=== PATIENT | male | born 1990 | race Caucasian/White ===

== ENCOUNTER 2017-03-10 17:06 | Emergency (ER) | payer OTHER ==
[~2017-03-10] VITALS: Ht 188 cm; Wt 68.0 kg
[2017-03-10 17:43] LABS: HEMATOCRIT 48.3 % (39.2-51.8); HEMOGLOBIN 16.1 g/dL (13.7-18.0); WHITE BLOOD COUNT 7.7 x10^3/uL (3.4-10)
[2017-03-10 17:49] LABS: DAU SCREEN DISCLAIMER
[2017-03-10 17:53] LABS: BLOOD UREA NITROGEN 14 mg/dL (7-18)
[2017-03-10] MEDS ORDERED: LORazepam 2 MG/ML, 1ML IVPush ONE (18:00)
[2017-03-10] MEDS ORDERED: PLEASE ENTER ALLERGIES MC SCH ×2 (18:30)
[2017-03-10 19:35] VITALS: BP 135/86
== END 2017-03-10 19:43 | disposition home or self-care (01) ==
LOC: MERGE 17:06 → EDBD 17:06 → ED 18:07
DX: F44.7 Conversion disorder with mixed symptom presentation (principal)
CPT/HCPCS: 36415; 70450; 80048; 80307; 81003; 82040; 85025; 93005; 99285; G0479

== ENCOUNTER 2017-03-11 03:41 | Emergency (ER) | payer OTHER ==
[~2017-03-11] VITALS: Ht 190.5 cm; Wt 61.3 kg
[2017-03-11 04:20] LABS: HEMATOCRIT 46.6 % (39.2-51.8); HEMOGLOBIN 15.9 g/dL (13.7-18.0); WHITE BLOOD COUNT 9.6 x10^3/uL (3.4-10)
[2017-03-11 04:30] LABS: BLOOD UREA NITROGEN 12 mg/dL (7-18)
[2017-03-11 04:36] LABS: ASPARTATE AMINO TRANSFERASE 19 U/L (15-37)
[2017-03-11 04:48] LABS: IS PT STATUS REG ER OR PRE ER? YES
[2017-03-11 04:58] VITALS: BP 121/72
== END 2017-03-11 05:13 ==
LOC: ED 04:00
DX: R07.89 Other chest pain (principal); F15.10 Other stimulant abuse, uncomplicated
CPT/HCPCS: 36415; 71010; 80053; 84484; 85025; 93005; 99285

== ENCOUNTER 2018-07-28 07:34 | Emergency (ER) | payer MEDICAID, OTHER ==
[~2018-07-28] VITALS: Ht 190.5 cm; Wt 74.2 kg
[2018-07-28 07:51] VITALS: BP 125/73
--- NOTE | 2018-07-28 09:25 | NUR ---
Discharge instructions discussed with patient, verbalizes understanding. Nicolas wrap applied to right knee, patient tolerated well. Patient ambulates independently with a steady gait to discharge desk in no acute distress.
== END 2018-07-28 09:28 | disposition home or self-care (01) ==
LOC: ED 09:22
DX: S83.421A Sprain of lateral collateral ligament of right knee, initial encounter (principal); F44.9 Dissociative and conversion disorder, unspecified; Z72.89 Other problems related to lifestyle; X58.XXXA Exposure to other specified factors, initial encounter; Y93.89 Activity, other specified; Y92.89 Other specified places as the place of occurrence of the external cause; Y99.8 Other external cause status
CPT/HCPCS: 99283

== ENCOUNTER 2019-04-14 00:11 | Emergency (ER) | payer MEDICAID ==
[~2019-04-14] VITALS: Ht 190.5 cm; Wt 67.0 kg
[2019-04-14 00:14] VITALS: BP 130/75
== END 2019-04-14 00:58 | disposition home or self-care (01) ==
LOC: ED 00:46
DX: S21.219D Laceration without foreign body of unspecified back wall of thorax without penetration into thoracic cavity, subsequent encounter (principal); X58.XXXD Exposure to other specified factors, subsequent encounter
CPT/HCPCS: 99281